=== PATIENT | male | born 1975 | race Two or more races ===

== ENCOUNTER 2023-02-15 22:49 | Emergency (ER) | payer MEDICAID ==
[~2023-02-15] VITALS: Ht 170.2 cm; Wt 75.0 kg
[2023-02-15 22:54] VITALS: BP 130/95
[2023-02-15] MEDS ORDERED: LORazepam 1 MG tablet PO ONE (23:35)
[2023-02-16 00:09] LABS: CLARITY,URINE SLIGHTLY CLOUDY (Clear); GLUCOSE, URINE NEGATIVE (Neg); KETONES,URINE 15 mg/dl (Neg); LEUKOCYTE ESTERASE ,URINE NEGATIVE (Neg); NITRITES, URINE NEGATIVE (Neg); OCCULT BLOOD,URINE NEGATIVE (Neg); PROTEIN,URINE TRACE mg/dl (Neg); UROBILINOGEN,URINE 0.2 E.U/dL (0.2-1.0)
[2023-02-16 00:14] LABS: COLOR,URINE DARK YELLOW (Yellow); UA COLLECTION TYPE CLN CATCH MIDSTREAM
[2023-02-16 00:15] LABS: LYMPHOCYTES % (AUTO) 19.4 % (21-51); MEAN CORPUSCULAR HEMOGLOBIN 30.8 PG (27.0-31.0)
[2023-02-16 00:15] LABS: HYALINE CASTS >30 /LPF (NEGATIVE)
[2023-02-16 00:16] LABS: BACTERIA,URINE 1+ /HPF (Neg); MUCUS STRANDS MODERATE /LPF (Neg); SQUAMOUS EPITHELIAL CELL,UR FEW /LPF (FEW)
[2023-02-16 00:17] LABS: BASOPHILS # (AUTO) 0.2 X10'3 (0-0.2); EOSINOPHILS % (AUTO) 0.3 % (0-6); HEMATOCRIT 39.9 % (42.0-52.0); HEMOGLOBIN 13.8 g/dl (14.0-17.9); LYMPHOCYTES # (AUTO) 3.1 X10'3 (1.1-4.8); MEAN CORPUSCULAR HGB CONC 34.6 g/dL (33.0-36.5); MEAN CORPUSCULAR VOLUME 89.1 FL (78-98); MEAN PLATELET VOLUME 7.9 FL (7.4-10.4); MONOCYTES # (AUTO) 2.4 X10'3 (0-0.9); NEUTROPHILS # (AUTO) 10.5 X10'3 (1.8-7.7); NEUTROPHILS % (AUTO) 64.3 % (42-75); PLATELET COUNT 327 X10'3 (140-440); RED BLOOD COUNT 4.48 X10'6 (4.70-6.10); RED CELL DISTRIBUTION WIDTH 14.8 % (11.5-14.5); WHITE BLOOD COUNT 16.2 X10'3 (4.5-11.0)
[2023-02-16 00:17] LABS: RBC,URINE 0-2 /HPF (0-2); TRANSITIONAL EPI CELLS,URINE FEW /HPF
[2023-02-16 00:18] LABS: FINE GRANULAR CAST 0-3 /LPF (NEGATIVE)
[2023-02-16 00:23] LABS: ALANINE AMINOTRANSFERASE 119 U/L (12-78); ALBUMIN 4.7 G/DL (3.4-5.0); ALBUMIN/GLOBULIN RATIO 1.4 (1.1-1.5); ALKALINE PHOSPHATASE 93 IU/L (46-116); ANION GAP 13 (8-16); ASPARTATE AMINO TRANSFERASE 91 U/L (10-37); BILIRUBIN,TOTAL 1.2 MG/DL (0.1-1.0); BLOOD UREA NITROGEN 32 MG/DL (7-18); BUN/CREATININE RATIO 14.6 (10.0-20.0); CALCIUM 9.8 MG/DL (8.5-10.1); CHLORIDE 96 MMOL/L (99-107); CREATININE 2.19 MG/DL (0.60-1.10); GLUCOSE 104 MG/DL (70-104); SODIUM 133 MMOL/L (135-145); TOTAL CARBON DIOXIDE 24.5 MMOL/L (24-32); TOTAL PROTEIN 8.1 G/DL (6.4-8.2); eGFR 32 ML/MIN
[2023-02-16 00:50] LABS: TOTAL CELLS COUNTED 100
[2023-02-16 00:51] LABS: LARGE PLATELETS FEW; PLATELET ESTIMATE NORMAL
[2023-02-16 00:56] LABS: CREATINE KINASE 3698 U/L (39-308)
== END 2023-02-16 00:45 | disposition left against medical advice (07) ==
LOC: ER 22:50
DX: R06.02 Shortness of breath (principal); E11.9 Type 2 diabetes mellitus without complications; F15.10 Other stimulant abuse, uncomplicated; Z56.0 Unemployment, unspecified
CPT/HCPCS: 36415; 80053; 81001; 82550; 82948; 85007; 85025; 87088; 99283